=== PATIENT | female | born 1995 | race Caucasian/White ===

== ENCOUNTER 2016-10-12 21:20 | Emergency (ER) | payer BC ==
--- NOTE | 2016-10-12 21:30 | UC ---
Complaint Female HPI - HPI Summary HPI Summary: PAIN AND BURNING AND URINARY FREQUENCY BEGAN TODAY. Denies, fevers, chills, nausea vomiting, flank pain - History Of Current Complaint Chief Complaint: UCGU Stated Complaint: URINARY ISSUE Time Seen by Provider: 10/12/16 21:26 Hx Obtained From: Patient Hx Last Menstrual Period: 3-4 weeks ago ?: No Onset/Duration: Sudden Onset, Lasting Days - 1, Still Present Timing: Constant Severity Initially: Mild Severity Currently: Mild Character: Burning Aggravating Factor(s): Urination Alleviating Factor(s): Meds - AZO Associated Signs And Symptoms: Positive: Negative - Allergies/Home Medications Allergies/Adverse Reactions: Allergies Allergy/AdvReac Type Severity Reaction Status Date / Time Amoxicillin Allergy Hives Verified 10/12/16 21:44 Home Medications: Home Medications Ibuprofen [Motrin Ib] 600 mg PO 10/12/16 [History] PMH/Surg Hx/FS Hx/Imm Hx Previously Healthy: Yes - Surgical History Surgical History: Yes Surgery Procedure, Year, and Place: wisdom teeth - Family History Known Family History: Positive: Other - Paternal GF of melanoma. Mother/ 24yo sister with skin CA unknown - Social History Occupation: Student Lives: With Family Alcohol Use: Occasionally Substance Use Type: None Smoking Status (MU): Never Smoked Tobacco Review of Systems Constitutional: Negative Skin: Negative Eyes: Negative ENT: Negative Respiratory: Negative Cardiovascular: Negative Gastrointestinal: Negative Genitourinary: Dysuria, Hematuria, Frequency, Urgency Motor: Negative Neurovascular: Negative Musculoskeletal: Negative Neurological: Negative Psychological: Negative All Other Systems Reviewed And Are Negative: Yes Physical Exam Triage Information Reviewed: Yes Appearance: Well-Appearing, No Pain Distress, Well-Nourished Vital Signs Reviewed: Yes Eye Exam: Normal Eyes: Positive: Conjunctiva Clear ENT Exam: Normal ENT: Positive: Normal ENT inspection, Hearing grossly normal, TMs normal. Negative: Nasal congestion, Nasal drainage, Tonsillar swelling, Tonsillar exudate, Trismus, Muffled/hoarse voice Dental Exam: Normal Neck exam: Normal Neck: Positive: Supple, Nontender Respiratory Exam: Normal Respiratory: Positive: Chest non-tender, Lungs clear, Normal breath sounds, No respiratory distress, No accessory muscle use Cardiovascular Exam: Normal Cardiovascular: Positive: RRR, No Murmur, Pulses Normal, Brisk Capillary Refill Abdominal Exam: Normal Abdomen Description: Positive: Nontender, No Organomegaly, Soft. Negative: CVA Tenderness (R), CVA Tenderness (L) Bowel Sounds: Positive: Present Musculoskeletal Exam: Normal Musculoskeletal: Positive: Strength Intact, ROM Intact, No Edema Neurological Exam: Normal Neurological: Positive: Alert, Muscle Tone Normal Psychological Exam: Normal Skin Exam: Normal Diagnostics - Laboratory Diagnostic Studies Completed/Ordered: ua-(+ 3 blood, 500 leuks, positive nitrate ) Complaint Female Dx - Course Course Of Treatment: bactrim, pyridium, increase fluids, follow with pcp re- check prn - Differential Dx/Diagnosis Differential Diagnosis/HQI/PQRI: Pelvic Inflammatory Disease, Renal Colic, Urinary Tract Infection Provider Diagnoses: UTI Discharge - Discharge Plan Condition: Stable Disposition: HOME Prescriptions: Sulfamethox/Trimethoprim DS* [Bactrim DS 800/160 TAB*] 1 tab PO BID #13 tab Patient Education Materials: Sulfamethoxazole/Trimethoprim (By mouth), Phenazopyridine (By mouth), Urinary Tract Infection in Women (ED) Referrals: Mo Rey NP [Nurse Practitioner] - If Needed
[2016-10-12] MEDS ORDERED: Sulfamethox/Trimethoprim DS 800/160* TAB PO ONE (21:44)
[2016-10-12 21:45] VITALS: BP 115/65
== END 2016-10-12 21:55 | disposition home or self-care (01) ==
LOC: UCEAST 21:20
DX: N39.0 Urinary tract infection, site not specified (principal); R31.9 Hematuria, unspecified; Z88.0 Allergy status to penicillin
CPT/HCPCS: 81002; 87077; 87086; 87186; 99212; A9270-GY; G0463

== ENCOUNTER 2017-01-10 12:59 | Emergency (ER) | payer BC ==
[2017-01-10 17:08] VITALS: BP 118/67
--- NOTE | 2017-01-10 17:50 | UC ---
Throat Pain/Nasal Duncan HPI - HPI Summary HPI Summary: Sore thraot for the past 3 days, roomate has strep - History of Current Complaint Chief Complaint: UCGeneralIllness Stated Complaint: SORE THROAT Time Seen by Provider: 01/10/17 17:16 Hx Obtained From: Patient Hx Last Menstrual Period: 01/10/17 ?: No Onset/Duration: Sudden Onset, Lasting Days Severity: Moderate Cough: None Associated Signs & Symptoms: Positive: Dysphagia - Allergies/Home Medications Allergies/Adverse Reactions: Allergies Allergy/AdvReac Type Severity Reaction Status Date / Time Amoxicillin Allergy Hives Verified 01/10/17 16:59 Home Medications: Home Medications Ibuprofen [Midol] 400 mg PO 01/10/17 [History] PMH/Surg Hx/FS Hx/Imm Hx Previously Healthy: Yes Endocrine History Of: Denies: Diabetes, Thyroid Disease Cardiovascular History Of: Denies: Cardiac Disorders, Hypertension Respiratory History Of: Denies: COPD, Asthma GI/ History Of: Denies: Ulcer - Surgical History Surgical History: Yes Surgery Procedure, Year, and Place: wisdom teeth - Family History Known Family History: Positive: Other - Paternal GF of melanoma. Mother/ 24yo sister with skin CA unknown - Social History Alcohol Use: Occasionally Substance Use Type: None Smoking Status (MU): Never Smoked Tobacco - Immunization History Most Recent Influenza Vaccination: 2016 Review of Systems Constitutional: Negative Skin: Negative Eyes: Negative ENT: Sore Throat Respiratory: Negative Cardiovascular: Negative Gastrointestinal: Negative Genitourinary: Negative Motor: Negative Neurovascular: Negative Musculoskeletal: Negative Neurological: Headache Psychological: Negative All Other Systems Reviewed And Are Negative: Yes Physical Exam Triage Information Reviewed: Yes Appearance: Well-Appearing, Well-Nourished, Pain Distress Vital Signs: Initial Vital Signs Temp 99.2 F 01/10/17 17:01 Pulse 92 01/10/17 17:01 Resp 18 01/10/17 17:01 BP 118/67 01/10/17 17:01 Pulse Ox 99 01/10/17 17:01 Vital Signs Reviewed: Yes Eye Exam: Normal ENT: Positive: Pharyngeal erythema, TMs normal, Tonsillar swelling Dental Exam: Normal Neck exam: Normal Neck: Positive: Supple, Nontender, No Lymphadenopathy Respiratory Exam: Normal Respiratory: Positive: Chest non-tender, Lungs clear, Normal breath sounds Cardiovascular Exam: Normal Cardiovascular: Positive: RRR, No Murmur, Pulses Normal Abdominal Exam: Normal Abdomen Description: Positive: Nontender, No Organomegaly, Soft Bowel Sounds: Positive: Present Musculoskeletal Exam: Normal Musculoskeletal: Positive: Strength Intact, ROM Intact, No Edema Neurological Exam: Normal Neurological: Positive: Alert, Muscle Tone Normal Psychological Exam: Normal Skin Exam: Normal Throat Pain/Nasal Course/Dx - Course Course Of Treatment: hx obtained exam performed, meds reviewed, rapid strep is negative. - Differential Dx/Diagnosis Differential Diagnosis/HQI/PQRI: Influenza, Laryngitis, Pharyngitis, Sinusitis, URI Provider Diagnoses: pharyngitis Discharge - Discharge Plan Condition: Stable Disposition: HOME Patient Education Materials: Pharyngitis (ED) Additional Instructions: 1. increase fluid intake and get plenty of rest 2. Ibuprofen and tylenol for pain and fever.
== END 2017-01-10 17:52 | disposition home or self-care (01) ==
LOC: UCEAST 12:59
DX: J02.9 Acute pharyngitis, unspecified (principal); Z88.1 Allergy status to other antibiotic agents
CPT/HCPCS: 87651; 99211; G0463

== ENCOUNTER 2017-01-29 19:30 | Emergency (ER) | payer BC ==
[2017-01-29 21:41] VITALS: BP 103/67
--- NOTE | 2017-01-29 21:43 | UC ---
Complaint Female HPI - HPI Summary HPI Summary: 2 days of pain and burning with urination no fevers, back pain nausea or vomiting - History Of Current Complaint Hx Obtained From: Patient Hx Last Menstrual Period: 01/10/17 ?: No Onset/Duration: Gradual Onset, Lasting Days - 2, Still Present Timing: Constant Severity Initially: Moderate Severity Currently: Moderate Pain Intensity: 4 Pain Scale Used: 0-10 Numeric Character: Burning Aggravating Factor(s): Urination Alleviating Factor(s): Position Associated Signs And Symptoms: Positive: Negative <Shama oG - Last Filed: 01/29/17 22:56> <Berenice Calderon - Last Filed: 01/30/17 07:24> - History Of Current Complaint Chief Complaint: UCGU Stated Complaint: POSS UTI Time Seen by Provider: 01/29/17 21:13 - Allergies/Home Medications Allergies/Adverse Reactions: Allergies Allergy/AdvReac Type Severity Reaction Status Date / Time Amoxicillin Allergy Hives Verified 01/29/17 21:34 PMH/Surg Hx/FS Hx/Imm Hx Previously Healthy: Yes Endocrine History Of: Denies: Diabetes, Thyroid Disease Cardiovascular History Of: Denies: Cardiac Disorders, Hypertension Respiratory History Of: Denies: COPD, Asthma GI/ History Of: Denies: Ulcer - Surgical History Surgical History: Yes Surgery Procedure, Year, and Place: wisdom teeth - Family History Known Family History: Positive: Other - Paternal GF of melanoma. Mother/ 24yo sister with skin CA unknown - Social History Occupation: Student Lives: With Family Alcohol Use: Occasionally Substance Use Type: None Smoking Status (MU): Never Smoked Tobacco - Immunization History Most Recent Influenza Vaccination: 2015 <Shama Go - Last Filed: 01/29/17 22:56> Review of Systems Constitutional: Negative Skin: Negative Eyes: Negative ENT: Negative Respiratory: Negative Cardiovascular: Negative Gastrointestinal: Negative Genitourinary: Dysuria, Hematuria, Frequency, Urgency Motor: Negative Neurovascular: Negative Musculoskeletal: Negative Neurological: Negative Psychological: Negative All Other Systems Reviewed And Are Negative: Yes <Shama Go - Last Filed: 01/29/17 22:56> Physical Exam Triage Information Reviewed: Yes Appearance: Well-Appearing, No Pain Distress, Well-Nourished Vital Signs: Initial Vital Signs Temp 98.2 F 01/29/17 21:36 Pulse 97 01/29/17 21:36 Resp 18 01/29/17 21:36 BP 103/67 01/29/17 21:36 Pulse Ox 98 01/29/17 21:36 Vital Signs Reviewed: Yes Eye Exam: Normal Eyes: Positive: Conjunctiva Clear ENT Exam: Normal ENT: Positive: Normal ENT inspection, Hearing grossly normal. Negative: Nasal congestion, Nasal drainage, Trismus, Muffled/hoarse voice Dental Exam: Normal Neck exam: Normal Neck: Positive: Supple, Nontender Respiratory Exam: Normal Respiratory: Positive: Chest non-tender, No respiratory distress, No accessory muscle use Cardiovascular Exam: Normal Cardiovascular: Positive: RRR, Pulses Normal, Brisk Capillary Refill Abdominal Exam: Normal Abdomen Description: Positive: Nontender, No Organomegaly, Soft. Negative: CVA Tenderness (R), CVA Tenderness (L) Bowel Sounds: Positive: Present Musculoskeletal Exam: Normal Musculoskeletal: Positive: Strength Intact, ROM Intact, No Edema Neurological Exam: Normal Neurological: Positive: Alert, Muscle Tone Normal Psychological Exam: Normal Skin Exam: Normal <Shama Go - Last Filed: 01/29/17 22:56> Vital Signs: Initial Vital Signs Temp 98.2 F 01/29/17 21:36 Pulse 97 01/29/17 21:36 Resp 18 01/29/17 21:36 BP 103/67 01/29/17 21:36 Pulse Ox 98 01/29/17 21:36 <Berenice Calderon - Last Filed: 01/30/17 07:24> Diagnostics - Laboratory Diagnostic Studies Completed/Ordered: Urine- 3+ blood 3 + leuks <Shama Go - Last Filed: 01/29/17 22:56> Complaint Female Dx - Course Course Of Treatment: Bactrim, pyridium, increase fluids, culture urine follow with pcp prn - Differential Dx/Diagnosis Differential Diagnosis/HQI/PQRI: , Renal Colic, Urinary Tract Infection Provider Diagnoses: UTI <Shama Go - Last Filed: 01/29/17 22:56> Discharge <Shama Go - Last Filed: 01/29/17 22:56> <Berenice Calderon - Last Filed: 01/30/17 07:24> - Discharge Plan Condition: Stable Disposition: HOME Prescriptions: Phenazopyridine TAB* [Pyridium 100 mg TAB*] 100 mg PO TID PRN #6 tab PRN Reason: urinary burning Sulfamethox/Trimethoprim DS* [Bactrim DS 800/160 TAB*] 1 tab PO BID #13 tab Patient Education Materials: Sulfamethoxazole/Trimethoprim (By mouth), Phenazopyridine (By mouth), Urinary Tract Infection in Women (ED) Referrals: Mo Rey COMPUTER SUPPORT SPECIALIST [Primary Care Provider] - If Needed Attestation Statement User Type: Provider - I was available for consult. This patient was seen by the JUDY. The patient was not presented to, seen by, or examined by me. -Pablo <Berenice Calderon - Last Filed: 01/30/17 07:24>
[2017-01-29] MEDS ORDERED: Sulfamethox/Trimethoprim DS 800/160* TAB PO ONE (22:02)
[2017-01-29] MEDS ORDERED: Phenazopyridine TAB* 100 MG PO ONE (22:03)
== END 2017-01-29 22:30 | disposition home or self-care (01) ==
LOC: UCEAST 19:30
DX: N39.0 Urinary tract infection, site not specified (principal); R31.9 Hematuria, unspecified; Z88.1 Allergy status to other antibiotic agents; Z32.02 Encounter for pregnancy test, result negative
CPT/HCPCS: 81003; 84702; 87077; 87086; 87186; 99202; A9270-GY; G0463